=== PATIENT | female | born 1955 | race Hispanic/Latino ===

== ENCOUNTER 2016-12-26 15:32 | Outpatient (CLI) | payer BC ==
--- NOTE | 2016-12-27 11:12 | Ultrasound Report ---
Sonogram right upper quadrant: History: Elevated liver function. Findings: Inhomogeneous liver suggestive of fatty liver. No intrahepatic or extrahepatic duct dilatation. Common bile diameter 2 mm. Gallbladder wall thickness 2.5 mm. Echogenic area in the gallbladder measuring 6 mm in diameter probably represents a polyp or noncalcified calculus among others. Right kidney 11.1 x 4 x 6.4 cm. Cortical thickness is 1.1 cm. No mass. No hydronephrosis. Normal pancreas. Impression: Fatty liver. Echogenic density within the gallbladder probably a polyp or noncalcified calculus among others. If clinically indicated CT scan may be advised
== END 2016-12-26 15:33 | disposition home or self-care (01) ==
LOC: US 15:32
PROVIDERS: ATTEND Internal Medicine
DX: K76.0 Fatty (change of) liver, not elsewhere classified (principal); R94.5 Abnormal results of liver function studies
CPT/HCPCS: 76705